=== PATIENT | female | born 1950 | race Two or more races ===

== ENCOUNTER → 2018-05-13 | Outpatient (CLI) | payer OTHER, MEDICARE ==
[2018-05-13] MEDS: REGADENOSON 0.4 MG/5 ML DISP.SYRIN. IV (09:45)
== END | disposition home or self-care (01) ==
LOC: NM 08:20
DX: R07.89 Other chest pain (principal); I10 Essential (primary) hypertension; E11.9 Type 2 diabetes mellitus without complications; R20.0 Anesthesia of skin
CPT/HCPCS: 78452; 93017; 96374; 96375; 96376; A9500; J2785